=== PATIENT | female | born 1985 | race Caucasian/White ===

== ENCOUNTER 2023-07-31 16:33 | Outpatient (CLI) | payer OTHER, SELFPAY ==
[2023-07-31 17:15] LABS: Hematocrit 42.9 % (37.0-47.0); Hemoglobin 14.1 g/dL (12.0-15.0); Mean Corpuscular HGB Conc 32.9 g/dl (32-36); Mean Corpuscular Hemoglobin 31.8 pg (26-34); Mean Corpuscular Volume 96.8 fl (80-100); Mean Platelet Volume 10.2 fl (7.4-10.4); Platelet Count Result 308 k/mm3 (150-375); Red Blood Count 4.43 M/mm3 (4.2-5.4); Red Cell Distribution Width 11.9 % (11.5-14.5); White Blood Count 9.1 K/mm3 (4.5-10.0)
[2023-07-31 17:44] LABS: Iron 107 ug/dL (37-170)
[2023-07-31 18:11] LABS: Albumin Level 4.7 g/dL (3.5-5.1); Anion Gap 7 mmol/L (8-16); Blood Urea Nitrogen 22 mg/dL (7-17); Calcium 9.5 mg/dL (8.4-10.2); Carbon Dioxide 26 mmol/L (22-30); Chloride 102 mmol/L (98-107); Estimated Glomerular Filt Rate > 60; Glucose 88 mg/dL (65-110); Potassium 3.8 mmol/L (3.4-5.0); Sodium 135 mmol/L (137-145)
[2023-08-02 12:18] LABS: Prealbumin 25.6 mg/dL (17.6-36.0)
[2023-08-06 13:05] LABS: Vitamin B1 17 nmol/L (8-30)
== END 2023-07-31 16:34 | disposition home or self-care (01) ==
LOC: ANHLAB 16:38
PROVIDERS: Visit Provider Surgery Plastic and Reconstructive Surgery
DX: R63.4 Abnormal weight loss (principal)
CPT/HCPCS: 36415; 80048; 82040; 83540; 84134; 84425; 85027

== ENCOUNTER 2023-08-27 01:40 | Day surgery (SDC) | payer OTHER, SELFPAY ==
[2023-08-15 12:32] VITALS: BMI 26.3
--- NOTE | 2023-08-15 12:37 | PC.NURSE ---
Report to the Outpatient Waiting Room, entrance under the green pavilion located off [facility], at time 0600 on date 08/27/23. Planned Procedure Time: 0730. Time changes happen often and if your time is changed the preop area will call you the afternoon before. - You and your visitor will be asked to self-screen and do not enter if you have any COVID symptoms. - A mask is optional within the hospital at this time. Patients may have clear liquids (water, carbonated beverages, clear teas, apple juice) until 3 hours prior to surgery with a maximum of 20 ounces. - No food from midnight until time of surgery Take the following medications with a SIP of water the morning of surgery: NONE DO NOT STOP ANY OF YOUR OTHER PRESCRIPTION MEDICATIONS PRIOR TO SURGERY ?EXCEPT THE FOLLOWING Medications to discontinue per physician: VITAMINS/SUPPLEMENTS Date to take last dose: 08/23/23 Please no make-up, nail hungarian, hairspray, perfume, deodorant, or body powder the day of surgery. No jewelry (including any body piercings) or valuables the day of surgery, leave them at home. Please take a shower or bath the night before, or the morning of, surgery with an antibacterial soap. Wear comfortable, loose fitting clothing. - Jewelry must be removed prior to entering the operating room. Rings and piercings that are not removed may be cut off. - The hospital will not accept responsibility for valuables. - Please leave all valuables, including medications, at home the day of surgery. If you are going home after surgery, a licensed substitute bus driver must drive you home. - NO public transportation without another adult if you receive anesthesia. - We recommend that an adult stay with you for 24 hours following discharge. - We also recommend that you do not drive, make important decision, drink alcoholic beverages, or take any drugs that were not prescribed by your health care provider for at least 24 hours after your discharge time. Follow any additional instructions given to you from your surgeon. If you or anyone in your household have experienced Covid symptoms in the past week, please notify your surgeon or the nurse liaison at the phone number below for possible testing. Telephone instructions given to PT Ann IVORY and asked if any additional questions and then verbalized understanding. Patient advised to call surgeon office or pre surgery nurse liaison [phone] if any additional questions.
[2023-08-27] VITALS (9 sets, daily range): BP systolic 115–131; BP diastolic 52–82; PULSE 65–94; RESP 10–16; TEMP 37.4; O2SAT 95–100
--- NOTE | 2023-08-27 05:53 | ECG_ITS ---
SEE SCANNED COPY FOR CONFIRMED REPORT MTDD
[2023-08-27] MEDS: LACTATED RINGERS 1,000 ML 30 ML IV CONT ×3 (06:15→13:58)
[2023-08-27 06:43] LABS: Urine Cotinine NEGATIVE
--- NOTE | 2023-08-27 06:56 | WPDHPUPDATE1 ---
History and Physical Update Update Date/Time: 08/27/23 06:56 History and Physical has been reviewed, including an updated exam of the patient. There are NO changes in the patient's condition. Risks, benefits, and alternatives have been discussed and questions answered. Patient agrees to proceed with procedure.
--- NOTE | 2023-08-27 06:57 | WPDHPUPDATE1 ---
History and Physical Update Update Date/Time: 08/27/23 06:57 History and Physical has been reviewed, including an updated exam of the patient. There are NO changes in the patient's condition. Risks, benefits, and alternatives have been discussed and questions answered. Patient agrees to proceed with procedure.
--- NOTE | 2023-08-27 06:57 | W.PM.PROC2 ---
Procedure Note - Detailed Date of Procedure 08/27/23 Pre-op Diagnosis Skin Laxity Post-op Diagnosis Same Procedure Performed 1. Bilateral brachioplasty 2. Dahlia abdominoplasty with suction lipectomy Surgeon Isaac Marshall MD Anesthesia General Findings Tissue removed: 2200 grams Lipoaspirate: 1250 cc Description of Procedure They are here today for the above procedures. Previously and again today the risks, benefits, alternatives were discussed in extensive detail. I wanted them to be very realistic about the risks involved as well as expectations. We discussed aftercare and what to monitor for. I was very upfront about the risks of wound breakdown leading to loss of skin, open wounds, and need for additional procedures with permanent abdominal deformity. We discussed DVT/PE risks and management. Made sure answered all of their questions to their satisfaction today and consent was obtained. They were marked in the preoperative holding area with their verification. The patient was taken to the operating room. Anesthesia was provided by anesthesiology. A Joseph catheter was started. Posterior Placed prone on the operating room table with care taken to protect from injury. Prepped and draped in a standard sterile fashion. A surgical time-out was taken. Stab incisions were made and tumescent solution was infiltrated. Once adequate time was allowed for hemostasis a 5mm basket and 3mm multi hole cannula were utilized to complete suction lipectomy based on S.A.F.E. technique in multiple planes and passes. Suction lipectomy continued to result based on pre-operative planning, intra-operative observation, and rolling pinch test which were in full agreement. Patient was then placed supine with care taken to protect from injury. Arms Stab incisions were made and I tumesced with a tumescent solution. Once adequate time for hemostasis suction lipectomy was with a 4 mm basket cannula based on S.A.F.E. technique. This was completed based on preoperative planning, intraoperative observation, and rolling pinch test which was in full agreement. I completely de-fatted the planned resection area and a strip avulsion technique was completed. Starting proximal to distal a 10 blade was used to excise the intervening skin and this was tacked as we proceed to ensure good closure. This was closed using a 2-0 Quill, 3-0 strata fix, running subcuticular 4-0 Monocryl, and tissue glue. Abdomen I placed the patient in a flexed position to verify the upper and lower markings would reach. I then placed supine. A thorough abdominal examination was completed. Stab incisions were made and tumescent solution infiltrated. Stab incisions were made and tumescent solution was infiltrated. Once adequate time was allowed for hemostasis a 5mm basket and 3mm multi hole cannula were utilized to complete suction lipectomy based on S.A.F.E. technique in multiple planes and passes. Suction lipectomy continued to result based on pre-operative planning, intra-operative observation, and rolling pinch test which were in full agreement. A 10 blade was used to make the upper incision as well as the vertical incision. I continued dissection down to the level of fascia. Elevated just what was necessary for repair of the diastasis. I then again flexed the bed to verify the upper skin flap would reach the lower markings without tension. Once verified I placed her supine once again and a 10 blade used to make the lower incision. I elevated up to level the umbilicus and left the umbilicus intact on a well-vascularized stalk. The intervening tissue was removed. A 2 mm blunt cannula with 0.5% bupivacaine was injected deep to the fascia bilaterally. I plicated the diastasis recti using 0 PDO Stratafix barbed suture. This was in 2 separate layers using 2 separate sutures as well. I also repaired lateral to the rectus using two layers of 0 PDO Stratafix. The
--- NOTE | 2023-08-27 07:25 | WPDANESEPPF ---
Anes - Initial Pre Proc Eval Procedure: Operation Date: 08/27/23 07:30 Proposed Procedures p Abdominoplasty Kasandraxiomara jones with Liposuction - Isaac Marshall MD s Bilateral Brachioplasty - Isaac Marshall MD Date/Time: 08/27/23 07:25 Surgeon: Isaac Marshall MD Pre Op Diagnosis: Skin Laxity Patient Data Age: 37 Gender: F Height: 1.68 m Weight: 73.95 kg Allergies Allergy/AdvReac Type Severity Reaction Status Date / Time No Known Allergies Allergy Verified 08/15/23 12:31 Home Medications Medication Instructions Recorded Confirmed Type qicjrkgf-tvblfvyj-xxzi 45 mg-folic 1 cap PO DAILY 08/15/23 08/15/23 History acid 800 mcg-vit K 120 mcg capsule (Bariatric Multivitamins) Laboratory Tests 08/27/23 06:17 Cotinine Negative Patient hx anesthesia problems: none Family hx anesthesia problems: none Results Review: All pre-operative results and documents have been reviewed as part of the pre-operative evaluation. [facility] Social History Social History Smoking status: Never smoker Alcohol intake: current Drinks per week: 2 Substance use: never Substance use type: does not use Living arrangements: with family Additional living arrangements comments: DAUGHTER Spiritual care concerns: No Anes - Eval Final PreProcedure Day of Procedure 08/27/23 07:25 Patient weight: normal Heart: regular rate and rhythm Lungs: clear to auscultation Airway: Mallampati scale Neurological: alert and oriented Last oral intake: >/= 8 hours ASA classification: I Emergent: no Anesthetic plan: proceed Anesthesia type and monitoring: general and standard monitoring Results Review: All pre-operative results and documents have been reviewed as part of the pre-operative evaluation. Informed Consent: The patient's anesthetic plan and its attendant risks and benefits were discussed with the patient/family/POA. Questions were solicited and answers provided to the satisfaction of the patient/family/POA.
[2023-08-27] MEDS: TRANEXAMIC ACID 1,000MG/ISO100 1,000 MG/100 ML BAG 200 MG IVPB (07:30)
[2023-08-27] MEDS: ceFAZolin 2 GM/D5W 50 ML 2 GM/50 ML BAG IVPB (07:30)
[2023-08-27] MEDS: LACTATED RINGERS IRRIG 1,000 ML, LIDOCAINE HCL 1% LOCAL INJ 50 ML, EPINEPHrine HCL INJ ... INFILTRATE (09:37)
[2023-08-27] MEDS: BUPIVACAINE/EPINEPHRINE 0.5% 50 ML VIAL 60 ML INFILTRATE (09:38)
[2023-08-27] MEDS: fentaNYL CITRATE INJ (*CRX) 100 MCG/2 ML VIAL 25 MCG IV PUSH (14:15)
[2023-08-27] MEDS: ONDANSETRON INJ 4 MG/2 ML VIAL IV PUSH (15:15)
[2023-08-27] MEDS: oxyCODONE HCL (*CRX) 5 MG TAB IR PO (15:34)
== END 2023-08-27 16:56 | disposition home or self-care (01) ==
PROVIDERS: Visit Provider Surgery Plastic and Reconstructive Surgery
PROC: (CPT 15836; principal; 2023-08-27 07:30)
PROC: (CPT 15836; 2023-08-27 07:30)
DX: Z41.1 Encounter for cosmetic surgery (principal); L57.4 Cutis laxa senilis
CPT/HCPCS: 15836; 15830; 15847; 15877; 80307; 93005; A9270; J0171; J0461; J0690; J1100; J1170; J2250; J2371; J2405; J2704; J3010; J7120

== ENCOUNTER 2024-04-27 10:50 | Outpatient (CLI) | payer BC, SELFPAY ==
[2024-04-27 11:30] LABS: Hematocrit 42.2 % (37.0-47.0); Mean Corpuscular HGB Conc 33.2 g/dl (32-36); Mean Corpuscular Hemoglobin 32.2 pg (26-34); Platelet Count Result 317 k/mm3 (150-375); Red Blood Count 4.35 M/mm3 (4.2-5.4); Red Cell Distribution Width 11.7 % (11.5-14.5); White Blood Count 7.7 K/mm3 (4.5-10.0)
[2024-04-27 11:42] LABS: Alanine Aminotransferase 19 U/L (6-35); Albumin Level 4.4 g/dL (3.5-5.1); Alkaline Phosphatase 79 U/L (38-126); Anion Gap 5 mmol/L (4-12); Aspartate Amino Transferase 25 U/L (14-36); Bilirubin,Total 0.7 mg/dL (0.2-1.3); Blood Urea Nitrogen 15 mg/dL (7-17); Calcium 9.1 mg/dL (8.4-10.2); Carbon Dioxide 26 mmol/L (22-30); Chloride 104 mmol/L (98-107); Estimated Glomerular Filt Rate > 60; Glucose 91 mg/dL (65-110); Potassium 3.8 mmol/L (3.4-5.0); Sodium 135 mmol/L (137-145)
[2024-04-27 11:48] LABS: Iron 128 ug/dL (37-170)
[2024-04-27 12:21] LABS: Prealbumin 23.3 mg/dL (17.6-36.0)
[2024-05-01 09:53] LABS: Vitamin B1 15 nmol/L (8-30)
== END 2024-04-27 10:51 | disposition home or self-care (01) ==
PROVIDERS: Visit Provider Surgery Plastic and Reconstructive Surgery
DX: R63.4 Abnormal weight loss (principal)
CPT/HCPCS: 36415; 80053; 83540; 84134; 84425; 85027

== ENCOUNTER 2024-07-08 13:18 | Outpatient (CLI) | payer OTHER, SELFPAY ==
[2024-07-08 14:12] LABS: Hematocrit 40.8 % (37.0-47.0); Hemoglobin 13.4 g/dL (12.0-15.0)
--- OUTSIDE RECORDS SUMMARY | 2024-07-08 15:06 | XMS_ITS | Patient Health Record ---
Author Organization [facility] Infectious Disease Address [address] [place] [address] Care Team Providers Care Automotive Refinish Technician Name Role Phone Arelis Funk Primary Care Provider Unavailabl e Allergies No Known Allergies Reason For Referral No Information Medications Medication SIG (Take, Route, Frequency, Duration) Notes Start Date End Date Status Ciprofloxacin-dexAMETHasone 0.3-0.1 % 4 drops into affected ear Otic Twice a day Active levoFLOXacin 750 MG 1 tablet Orally Once a day Active Problems Problem Type SNOMED Code ICD Code Onset Dates Problem Status W/U Status Risk Notes Problem [id number] Non-recurrent acute suppurative otitis media of left ear with spontaneous rupture of tympanic membrane (H66.012) Active confirmed Plan Of Treatment No Information Medical (General) History Medical History History ICD Code Facial cellulitis Acute hearing loss of left ear Non-recurrent acute suppurative otitis m edia of left ear Migraines Surgical History Surgery Date(Month/Year) wisdom teeth extraction Hospitalization History Reason Date(Month/Year) Facial cellulitis 03/04/2021
--- OUTSIDE RECORDS SUMMARY | 2024-07-08 15:06 | XMS_ITS ---
Author Organization [facility] Address [address] [place] [address] Care Team Providers Care Overnight Babysitter Name Role Phone Zara Alves Primary Care Provider Aleksandr Hsu Unavailable [phone] REASON FOR VISIT denied PA MEDICATIONS Medication SIG (Take, Route, Fr equency, Duration) Notes Start Date End Date Status Wegovy 2.4 MG/0.75ML 0.5 mL Subcutaneous Weekly for 30 days Active Encounters Encounter Location Date Provider Diagnosis [facility] [address] [place] [address] 06/10/2024 Aleksandr Hsu Obesity, unspecified E66.9 ASSESSMENTS Encounter Date Diagnosis Assessment Notes Treatment Notes Treatment Clinical Notes 06/10/2024 Obesity, unspecified (ICD-10 - E66.9) PLAN OF TREATMENT Medication Medication Name Sig Start Date Stop Date Notes Wegovy 2.4 MG/0.75ML 0.5 mL Subcutaneous Weekly for 30 days
--- OUTSIDE RECORDS SUMMARY | 2024-07-08 15:06 | XMS_ITS ---
Author Organization [facility] Address [address] [place] [address] Care Team Providers Care Miniature Train Driver Name Role Phone Zara Alves Primary Care Provider [phone] Aleksandr Hsu Unavailable [phone] REASON FOR VISIT PA Encounters Encounter Location Date Provider Diagnosis [facility] [address] [place] [address] 06/09/2024 Aleksandr Hsu PLAN OF TREATMENT No Information
--- OUTSIDE RECORDS SUMMARY | 2024-07-08 15:06 | XMS_ITS | Clinical Summary ---
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 Gender Identity Not on file Sexual Orientation Not on file Plan of Treatment Health Maintenance Due Date Last Done Comments Hepatitis C Virus (HCV) Screening 1984 TdaP Immunization 1984 Hepatitis B Immunization (1 of 3 - 19+ 3-dose series) 10/15/2003 Pap Smear 2005 Cervical Cancer Screening (CCS) 2014 HPV/Cotest 2014 Influenza Immunization (#1) 2024 SARS-COV-2 Immunization ( season) 2024 Respiratory Syncytial Virus (RSV) Immunization (Adult) (1 - 1-dose 75+ series) 10/15/2059 Meningococcal Immunization (ACWY) Aged Out No longer eligible based on patient's age to complete this topic Pneumococcal Immunization Combined Aged Out No longer eligible based on patient's age to complete this topic Rotavirus Immunization Aged Out No lo nger eligible based on patient's age to complete this topic Care Teams Oxygen Therapy Teacher Relationship Specialty Start Date End Date Micha Funk MD [address], [place] [address] [facility] - General 07/05/10
--- OUTSIDE RECORDS SUMMARY | 2024-07-08 15:06 | XMS_ITS | Patient Health Record ---
Author Organization [facility] Address [address] [place] [address] Care Team Providers Care Director Outcomes Name Role Phone Zara Alves Primary Care Provider [phone] Aleksandr Hsu Unavailable [phone] ALLERGIES No Known Allergies REASON FOR REFERRAL No Information MEDICATIONS Medication SIG (Take, Route, Fr equency, Duration) Notes Start Date End Date Status Wegovy 2.4 MG/0.75ML 0.75 mL Subcutaneou s Weekly for 30 days Active SOCIAL HISTORY Sex Assigned At : Social History Observation Description Sex Assigned At Unknown PROBLEMS Problem Type ICD Code Onset Dates Problem Status W/U Status Risk SNOMED Code Notes Problem Migraine headaches (346.90) Active confirmed Migraine (98105025) Problem Obesity, unspecified (E66.9) Active confirmed Obesity (218646433) Problem Mixed hyperlipidemia (E78.2) Active confirmed Mixed hyperlipidemia (673563631) VITAL SIGNS Blood pressure diastolic 70 06/03/2024 Height 66 in 06/03/2024 Blood pressure systolic 118 06/03/2024 Weight 171 lbs 06/03/2024 BMI 27.60 kg/m2 06/03/2024 Encounters Encounter Location Date Provider Diagnosis [facility] [address] [place] [address] 06/03/2024 Aleksandr Hsu Mixed hyperlipidemia E78.2 and Obesity, unspecified E66.9 [facility] [address] [place] [address] 06/09/2024 Aleksandr Hsu [facility] [address] [place] [address] 06/10/2024 Aleksandr Hsu Obesity, unspecified E66.9 [facility] [address] [place] [address] 06/22/2024 Aleksandr Hsu Obesity, unspecified E66.9 ASSESSMENTS Encounter Date Diagnosis Assessment Notes Treatment Notes Treatment Clinical Notes 06/03/2024 Obesity, unspecified (ICD-10 - E66.9) 06/03/2024 Mixed hyperlipidemia (ICD-10 - E78.2) The chart was reviewed along with the previous records, examination, and treatment provided. I have supervised and agree with the care provided. . Paul Funk MD 06/10/2024 Obesity, unspecified (ICD-10 - E66.9) 06/22/2024 Obesity, unspecified (ICD-10 - E66.9) PLAN OF TREATMENT Pending Test Test Name Order Date VENIPUNCTURE 07/19/2021 Future Test Test Name Order Date Influenza A 07/31/2021 Influenza B 07/31/2021 Insurance Providers Payer Name Payer Address Payer Phone Subscriber Number Group Number Insured Name Patient Relationship to Insured Coverage Start Date Coverage End Date [facility] [address] [place] [address] [phone] [id number] Makenna Ryan Self - patient is the insured MEDICAL (GENERAL) HISTORY Medical History History ICD Code [id number] Lewis
--- OUTSIDE RECORDS SUMMARY | 2024-07-08 15:07 | XMS_ITS ---
Author Organization [facility] Address [address] [place] [address] Care Team Providers Care Site Medical Director Name Role Phone Zara Alves Primary Care Provider [phone] Aleksandr Hsu Unavailable [phone] REASON FOR VISIT Fill dosing MEDICATIONS Medication SIG (Take, Route, Fr equency, Duration) Notes Start Date End Date Status Wegovy 2.4 MG/0.75ML 0.75 mL Subcutaneou s Weekly for 30 days Active Encounters Encounter Location Date Provider Diagnosis [facility] [address] [place] [phone] 06/22/2024 Aleksandr Hsu Obesity, unspecified E66.9 ASSESSMENTS Encounter Date Diagnosis Assessment Notes Treatment Notes Treatment Clinical Notes 06/22/2024 Obesity, unspecified (ICD-10 - E66.9) PLAN OF TREATMENT Medication Medication Name Sig Start Date Stop Date Notes Wegovy 2.4 MG/0.75ML 0.75 mL Subcutaneou s Weekly for 30 days
== END 2024-07-08 13:19 | disposition home or self-care (01) ==
PROVIDERS: Anesthesiology; Visit Provider Surgery Plastic and Reconstructive Surgery
DX: Z01.818 Encounter for other preprocedural examination (principal); N64.81 Ptosis of breast
CPT/HCPCS: 36415; 85014; 85018

== ENCOUNTER 2024-07-16 00:30 | Day surgery (SDC) | payer OTHER, SELFPAY ==
[2024-07-06 15:02] VITALS: BMI 27.4
--- NOTE | 2024-07-06 15:14 | PC.NURSE ---
Report to the Outpatient Waiting Room, entrance under the green pavilion located off [facility], at time __0600am on date _07/16/24 . Planned Procedure Time: ___0730am .? Time changes happen often and if your time is changed the preop area will call you the afternoon before. - You and your visitor will be asked to self-screen and do not enter if you have any COVID symptoms. Please call surgeon if you need to reschedule. - A mask is optional within the hospital at this time. Patients may have clear liquids (water, carbonated beverages, clear teas, apple juice) until 3 hours prior to surgery with a maximum of 20 ounces. - No food from midnight until time of surgery and no smoking, or chewing tobacco (or any form of nicotine). No chewing gum, candy or mints. (0430am) Take only the following medications with a SIP of water on the morning of surgery: __None DO NOT STOP ANY OF YOUR OTHER PRESCRIPTION MEDICATIONS PRIOR TO SURGERY EXCEPT THE FOLLOWING Hold all vitamins and supplements for 3 days per anesthesiologist.Date to take last dose____07/12/24 Please no make-up, nail bulgarian, hairspray, perfume, deodorant, or body powder the day of surgery.? No jewelry (including any body piercings) or valuables the day of surgery, leave them at home.? Please take a shower or bath the night before, or the morning of, surgery with an antibacterial soap.? Wear comfortable, loose fitting clothing.? - Jewelry must be removed prior to entering the operating room.? Rings and piercings that are not removed may be cut off. - The hospital will not accept responsibility for valuables.? - Please leave all valuables, including medications, at home the day of surgery. If you are going home after surgery, a licensed skidder driver must drive you home.? - NO public transportation without another adult if you receive anesthesia. - We recommend that an adult stay with you for 24 hours following discharge. - We also recommend that you do not drive, make important decision, drink alcoholic beverages, or take any drugs that were not prescribed by your health care provider for at least 24 hours after your discharge time. Follow any additional instructions given to you from your surgeon. Telephone instructions given to __patient and asked if any additional questions and then verbalized understanding. Patient advised to call surgeon office or pre surgery nurse liaison [phone] if any additional questions.
[2024-07-16] VITALS (10 sets, daily range): BP systolic 93–158; BP diastolic 56–85; PULSE 55–71; RESP 12–20; TEMP 36.1–36.7; O2SAT 98–100
--- OUTSIDE RECORDS SUMMARY | 2024-07-16 00:33 | XMS_ITS | Patient Health Record ---
Author Organization [facility] Infectious Disease Address [address] [place] [address] Care Team Providers Care Gyro Compass Tester Name Role Phone Arelis Funk Primary Care [...] Problem Status W/U Status Risk Notes Problem [id number] Non-recurrent acute suppurative otitis media of left [...]
--- OUTSIDE RECORDS SUMMARY | 2024-07-16 00:33 | XMS_ITS | Clinical Summary ---
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
[2024-07-16] MEDS: LACTATED RINGERS 1,000 ML 30 ML IV CONT ×3 (06:30→13:48)
[2024-07-16 06:35] LABS: Urine Cotinine NEGATIVE
--- NOTE | 2024-07-16 06:35 | WPDANESEPPF ---
Anes - Initial Pre Proc Eval Procedure: Operation Date: 07/16/24 07:30 Proposed Procedures p Bilateral Breast Mastopexy, - Isaac Marshall MD s Bilateral Breast Augmentation, - Isaac Marshall MD s Bilateral Medial Thigh Lift with Liposuction - Isaac Marshall MD Date/Time: 07/16/24 06:35 Surgeon: Isaac Marshall MD Pre Op Diagnosis: breast ptosis, micromastia, skin laxity Patient Data Age: 38 Gender: F Height: 1.68 m Weight: 77.11 kg Allergies Allergy/AdvReac Type Severity Reaction Status Date / Time No Known Allergies Allergy Verified 07/06/24 15:01 Home Medications ?Medication ?Instructions ?Recorded ?Confirmed ?Type pbuixfrj-lphvokng-twji 45 mg-folic 1 cap PO DAILY 08/15/23 07/06/24 History acid 800 mcg-vit K 120 mcg capsule (Bariatric Multivitamins) Laboratory Tests 07/16/24 06:18 Cotinine Pending Patient hx anesthesia problems: none Family hx anesthesia problems: none Results Review: All pre-operative results and documents have been reviewed as part of the pre-operative evaluation. [facility] Surgical History Surgical History (Updated 07/16/24 @ 06:35 by Micha Waldron MD) S/P abdominoplasty S/P gastric sleeve procedure Social History Social History Smoking status: Never smoker Alcohol intake: current Drinks per week: 2 Substance use: never Substance use type: marijuana Living arrangements: with family Additional living arrangements comments: 12 yr old Spiritual care concerns: No Anes - Eval Final PreProcedure Day of Procedure 07/16/24 06:35 Patient weight: overweight Heart: regular rate and rhythm Lungs: clear to auscultation Airway: Mallampati scale class II Neurological: alert and oriented Last oral intake: >/= 8 hours ASA classification: II Emergent: no Anesthetic plan: proceed Anesthesia type and monitoring: general ETT and standard monitoring Results Review: All pre-operative results and documents have been reviewed as part of the pre-operative evaluation. Informed Consent: The patient's anesthetic plan and its attendant risks and benefits were discussed with the patient/family/POA. Questions were solicited and answers provided to the satisfaction of the patient/family/POA.
--- NOTE | 2024-07-16 07:26 | WPDHPUPDATE1 ---
History and Physical Update Update Date/Time: 07/16/24 07:26 History and Physical has been reviewed, including an updated exam of the patient. There are NO changes in the patient's condition. Risks, benefits, and alternatives have been discussed and questions answered. Patient agrees to proceed with procedure.
--- NOTE | 2024-07-16 07:26 | W.PM.PROC2 ---
Procedure Note - Detailed Date of Procedure 07/16/24 Pre-op Diagnosis breast ptosis, micromastia, skin laxity Post-op Diagnosis Same Procedure Performed 1. Bilateral augmentation mastopexy with Galaflex 2. Bilateral medial thigh lift Surgeon Isaac Marshall MD Anesthesia General Findings Inverted T Superior pedicle Subfascial Bilateral Juvenal Heaton SoftTouch 440cc Right - REF# [id number] SN [id number] Left - REF# [id number] SN [id number] Lipoaspirate thighs: 2,500 cc Description of Procedure She is here today for bilateral breast augmentation mastopexy. Previously and again today the risks, benefits, alternatives were discussed in extensive detail. I wanted her to be very realistic about the risks involved as well as expectations. We discussed aftercare and what to monitor for. Made sure answered all of her questions to her satisfaction today and consent was obtained. Marked in the preoperative holding area with their verification. The patient was taken to the operating room placed supine on the operating table. Anesthesia was provided by anesthesiology. A surgical time-out was taken. She was prepped and draped in a standard sterile fashion. Breast Tumescent was utilized laterally to provide field block Tegaderm nipple Kinney were placed. A 15 blade used to make an incision just superior to the inframammary fold leaving a cusp of de-epithelized tissue at the t junction. Dissection was continued until the chest wall as identified. I elevated a subfascial pocket in the appropriate dimensions based on our preoperative planning for the implant. I then copiously irrigated with saline solution and verified a strict hemostasis. Next the use a triple antibiotic and Betadine containing solution to irrigate the pocket. I washed my gloves with the triple antibiotic and Betadine solution. We washed the implant immediately upon opening it with this solution and only opened it when we needed it. I used implant funnel and no-touch technique. The implant was introduced into the pocket using the funnel. Galaflex was soaking on the back table in a Betadine solution. Trimmed and placed into the pocket. Having verified positioning of the implant this was closed using 2-0 PDS. I tailor tacked the breast into position. Placed her in a sitting position. Verified the nipple-areolar location based on preoperative planning as well as intraoperative observations and measurements in full agreement. She was placed supine. I de-epithelialized the pedicle. I then removed the inferior central portion of the breast need making sure the implant was well protected. I elevated medial and lateral tissue flaps as well for planned closure. I closed along the IMF with 2-0 Stratafix. Along the vertical with 2-0 PDS. I closed around the areola with 3-0 strata fix. 3-0 Monocryl along the vertical. 3-0 Stratafix along the IMF. I finally closed everything with running subcuticular 4-0 Monocryl and tissue glue. [place] on vertical scar. Thighs Stab incisions were made and I tumesced with a tumescent solution. Once adequate time for hemostasis suction lipectomy was with a 5 mm basket cannula and 4mm gentry based on S.A.F.E. technique. This was completed based on preoperative planning, intraoperative observation, and rolling pinch test which was in full agreement. I completely de-fatted the planned resection area and a strip avulsion technique was completed. Starting proximal to distal a 10 blade was used to excise the intervening skin and this was tacked as we proceed to ensure good closure. This was closed using a 2-0 Quill, 3-0 strata fix, running subcuticular 4-0 Monocryl, and tissue glue. Dressings were placed. Tolerated the procedure well. Taken to the PACU without difficulty. All instrument sponge counts were correct at the end of the case. Estimated Blood Loss 100 Drains No Packing No Pathology None sent Complications No immediate complications Condition Stable Disposition PACU
[2024-07-16] MEDS: TRANEXAMIC ACID 1,000MG/ISO100 1,000 MG/100 ML BAG 200 MG IVPB (07:30)
[2024-07-16] MEDS: ceFAZolin 2 GM/D5W 50 ML 2 GM/50 ML BAG IVPB (07:30)
[2024-07-16] MEDS: SCOPOLAMINE 1 MG PATCH 1 PATCH TRANSDERM (07:47)
[2024-07-16 08:00] LABS: BEDSIDEPREGUCG Negative (Negative)
[2024-07-16] MEDS: LACTATED RINGERS IRRIG 1,000 ML, LIDOCAINE 1% LOCAL INJ 50 ML, EPINEPHrine HCL INJ 1 MG... INFILTRATE (08:23)
[2024-07-16] MEDS: NACL 0.9% IRRIG POUR BOTTLE 900 ML, GENTAMICIN SULFATE INJ 160 MG, ceFAZolin 2 GM, POVI... IRRIGATION (08:23)
[2024-07-16] MEDS: ceFAZolin SODIUM 1 GM VIAL IV PUSH (11:30)
[2024-07-16] MEDS: fentaNYL CITRATE INJ (*CRX) 100 MCG/2 ML VIAL 25 MCG IV PUSH ×4 (14:05→14:18)
[2024-07-16] MEDS: oxyCODONE HCL (*CRX) 5 MG TAB IR PO (15:02)
== END 2024-07-16 16:07 | disposition home or self-care (01) ==
PROVIDERS: Visit Provider Surgery Plastic and Reconstructive Surgery
PROC: (CPT 19316; principal; 2024-07-16 07:30)
PROC: (CPT 19316; 2024-07-16 07:30)
PROC: (CPT 15832; 2024-07-16 07:30)
DX: Z41.1 Encounter for cosmetic surgery (principal); N64.81 Ptosis of breast; L57.4 Cutis laxa senilis; N64.82 Hypoplasia of breast; Z98.890 Other specified postprocedural states; Z98.84 Bariatric surgery status
CPT/HCPCS: 19316; 19325; 15777 ×2; 15832; 15879; 80307; A9270; J0171; J0690; J1100; J1171; J1580; J2003; J2250; J2405; J2704; J3010; J7120